=== PATIENT | female | born 1975 | race Caucasian/White ===

== ENCOUNTER 2016-10-20 19:38 | Emergency (ER) | payer OTHER ==
[2016-10-20 19:38] VITALS: BMI 26.9
[2016-10-20 19:42] VITALS: BP 149/78; PULSE 89; RESP 16; TEMP 100.3; O2SAT 100
[2016-10-20] MEDS ORDERED: Sodium Chloride 0.9% 1,000 ML IV STA (19:54)
--- NOTE | 2016-10-20 19:56 | ED PDOC ---
HPI: Abdomen Time Seen by Provider: 10/20/16 19:44 Chief Complaint (Nursing): Abdominal Pain Chief Complaint (Provider): Abdominal Pain History Per: Patient History/Exam Limitations: no limitations Onset/Duration Of Symptoms: Hrs (x2) Outside of [place] travel?: No Current Symptoms Are (Timing): Still Present Severity: Moderate Location Of Pain/Discomfort: Epigastric Associated Symptoms: Nausea, Vomiting (non-bloody, multiple episodes). denies: Fever, Diarrhea Additional Complaint(s): Taylor Carrillo is a 41 year old female, with a past medical history inclusive of gastritis and diabetes, who presents to the ED on 10/20/16 for the evaluation of moderate, epigastric abdominal pain that she has experienced x2 hours. Associated nausea and multiple episodes of non-bloody vomiting also reported, though she denies fever or diarrhea. PMD: Mario Sultana Past Medical History Reviewed: Historical Data, Nursing Documentation, Vital Signs Vital Signs: Last Vital Signs Temp 100.3 F H 10/20/16 19:39 Pulse 89 10/20/16 19:39 Resp 16 10/20/16 19:39 BP 149/78 10/20/16 19:39 Pulse Ox 100 10/20/16 20:01 - Medical History PMH: Anxiety, Diabetes, Gastritis, Kidney Stones, Chronic Kidney Disease Denies: CAD - Surgical History Surgical History: (x2) - Family History Family History: States: Hypertension - Home Medications Home Medications: Ambulatory Orders Medication Instructions Recorded Atenolol [Atenolol] 1 tab PO DAILY 07/12/15 Clonazepam [Clonazepam] 1 tab PO DAILY 07/12/15 metFORMIN [glucOPHAGE] 1 tab PO BID 07/12/15 Acetaminophen/Hydrocodone Bi 1 tab PO QID PRN #10 tab 07/13/15 [Hydrocodone-Acetaminophen 300 mg-5 mg] Cephalexin [cephalexin] 500 mg PO BID 10 Days 03/02/16 Ibuprofen [Motrin] 600 mg PO Q6 #20 tab 03/02/16 Phenazopyridine HCl [Pyridium] 100 mg PO TID #6 tab 03/02/16 Acetaminophen with Codeine 1 tab PO Q6 PRN #10 tab 06/03/16 [Tylenol with Codeine No. 3 300 mg-30 mg] Ondansetron [Zofran] 4 mg PO Q8H PRN #10 tab 06/03/16 Dicyclomine [Dicyclomine HCl] 10 mg PO Q8 #10 cap 10/20/16 Ondansetron [Zofran] 4 mg PO Q8H #10 tab 10/20/16 - Allergies Allergies/Adverse Reactions: Allergies Allergy/AdvReac Type Severity Reaction Status Date / Time No Known Allergies Allergy Verified 10/20/16 19:39 Review of Systems ROS Statement: Except As Marked, All Systems Reviewed And Found Negative Constitutional: Negative for: Fever Gastrointestinal: Positive for: Nausea, Vomiting (multiple episodes, non-bloody) , Abdominal Pain (epigastric). Negative for: Diarrhea Physical Exam - Reviewed Nursing Documentation Reviewed: Yes Vital Signs Reviewed: Yes - Physical Exam Appears: Positive for: Non-toxic, No Acute Distress Head Exam: Positive for: ATRAUMATIC, NORMOCEPHALIC Skin: Positive for: Normal Color, Warm, Dry Eye Exam: Positive for: Normal appearance, PERRL Cardiovascular/Chest: Positive for: Regular Rate, Rhythm. Negative for: Murmur Respiratory: Positive for: Normal Breath Sounds. Negative for: Respiratory Distress Gastrointestinal/Abdominal: Positive for: Soft, Tenderness (epigastric). Negative for: Guarding, Rebound Back: Positive for: Normal Inspection Neurologic/Psych: Positive for: Alert, Oriented - Laboratory Results Result Diagrams: 10/20/16 20:15 10/20/16 20:15 - ECG O2 Sat by Pulse Oximetry: 100 (RA) Pulse Ox Interpretation: Normal Medical Decision Making Medical Decision Makin:44 Initial Impression: epigastric abdominal pain/nauseas/vomiting in setting of known gastritis Initial Plan: * Labs * Upreg * Udip * IV NS 1000ml at 100mls/hr * Pepcid 20mg IVP * Zofran 4mg IVP * Bentyl 10mg PO * Reevaluation Scribe Attestation: Documented by Tracy Adkins, acting as a scribe for Bar Boone MD. Provider Scribe Attestation: All medical record entries made by the Scribe were at my direction and personally dictated by me. I have reviewed the chart and agree that the record accurately reflects my personal performance of the history, physical exam, medical decision making, and the department course for this patient. I have also personally directed, reviewed, and agree with the discharge instructions and disposition. Disposition - Clinical Impression Clinical Impression: Gastritis - Patient ED Disposition Is Patient to be Admitted: No Counseled Patient/Family Regarding: Studies Performed, Diagnosis, Need For Followup, Rx Given - Disposition Referrals: [facility] [Outside] Disposition: Routine/Home Disposition Time: 22:14 Condition: FAIR Prescriptions: Dicyclomine [Dicyclomine HCl] 10 mg PO Q8 #10 cap Ondansetron [Zofran] 4 mg PO Q8H #10 tab Instructions: Gastritis (ED) Print Language: PERUVIAN
[2016-10-20 20:25] LABS: BASO # 0.1 K/uL (0.0-0.2); BASO % 0.9 % (0.0-2.0); EOS # 0.1 K/uL (0.0-0.7); EOS % 0.9 % (0.0-4.0); HEMATOCRIT 30.9 % (34.0-47.0); LYMPH # 1.9 K/uL (1.0-4.3); LYMPH % 15.7 % (20.0-40.0); MEAN CELL VOLUME 76.8 fl (81.0-99.0); MEAN CORPUSCULAR HEMOGLOBIN 24.2 pg (27.0-31.0); MEAN CORPUSCULAR HGB CONC 31.5 g/dL (33.0-37.0); MEAN PLATELET VOLUME 9.4 fl (7.2-11.7); MONO # 0.7 K/uL (0.0-0.8); MONO % 5.7 % (0.0-10.0); NEUT # 9.5 K/uL (1.8-7.0); NEUT % 76.8 % (50.0-75.0); RED CELL DISTRIBUTION WIDTH 15.5 % (11.5-14.5)
[2016-10-20 20:39] LABS: ALKALINE PHOSPHATASE 83 U/L (38-126); ALT/SGPT 31 U/L (9-52); AST/SGOT 53 U/L (14-36); BILIRUBIN,TOTAL 0.6 mg/dl (0.2-1.3); BLOOD UREA NITROGEN 13 mg/dl (7-17); CALCIUM 8.9 mg/dL (8.4-10.2); CARBON DIOXIDE 23 mmol/L (22-30); CHLORIDE 106 mmol/L (98-107); GFR AFRICAN-AMERICAN > 60; GLUCOSE,RANDOM 112 mg/dL (65-105); SODIUM 144 mmol/l (132-148); TOTAL PROTEIN 8.1 G/DL (6.3-8.2)
[2016-10-20 20:53] LABS: WHITE BLOOD COUNT 12.4 K/uL (4.8-10.8)
== END 2016-10-20 22:34 | disposition home or self-care (01) ==
LOC: H.ER 19:38
DX: K29.70 Gastritis, unspecified, without bleeding (principal); R10.13 Epigastric pain; R11.2 Nausea with vomiting, unspecified; E11.22 Type 2 diabetes mellitus with diabetic chronic kidney disease; Z79.84 Long term (current) use of oral hypoglycemic drugs; N18.9 Chronic kidney disease, unspecified

== ENCOUNTER 2017-03-22 23:07 | Emergency (ER) | payer MEDICAID, OTHER ==
[2017-03-22 23:08] VITALS: BMI 26.9
[2017-03-22 23:11] VITALS: BP 136/84; PULSE 94; RESP 20; TEMP 98.2; O2SAT 99
[2017-03-22] MEDS ORDERED: Sodium Chloride 0.9% 1,000 ML IV STA (23:41)
[2017-03-23 00:07] LABS: BASO # 0.1 K/uL (0.0-0.2); BASO % 0.8 % (0.0-2.0); EOS # 0.2 K/uL (0.0-0.7); HEMATOCRIT 33.2 % (34.0-47.0); LYMPH # 1.4 K/uL (1.0-4.3); LYMPH % 15.7 % (20.0-40.0); MEAN CELL VOLUME 81.5 fl (81.0-99.0); MEAN CORPUSCULAR HEMOGLOBIN 26.2 pg (27.0-31.0); MEAN CORPUSCULAR HGB CONC 32.1 g/dL (33.0-37.0); MEAN PLATELET VOLUME 9.3 fl (7.2-11.7); MONO # 0.9 K/uL (0.0-0.8); MONO % 10.2 % (0.0-10.0); NEUT # 6.2 K/uL (1.8-7.0); NEUT % 71.3 % (50.0-75.0); RED CELL DISTRIBUTION WIDTH 16.7 % (11.5-14.5); WHITE BLOOD COUNT 8.7 K/uL (4.8-10.8)
[2017-03-23 00:10] LABS: RBC URINE 3 /hpf (0-3); URINE BILIRUBIN NEGATIVE (NEGATIVE); URINE BLOOD NEGATIVE (NEGATIVE); URINE COLOR STRAW (YELLOW); URINE GLUCOSE (UA) NEG (Normal); URINE KETONE NEGATIVE (NEGATIVE); URINE LEUKOCYTE ESTERASE NEG Leu/uL (Negative); URINE PROTEIN NEGATIVE (NEGATIVE); URINE UROBILINOGEN 0.2-1.0 mg/dL (0.2-1.0); WBC URINE 1 /hpf (0-5)
[2017-03-23 00:14] LABS: ALB/GLOB RATIO 1.2 (1.0-2.1); ALKALINE PHOSPHATASE 69 U/L (38-126); ALT/SGPT 117 U/L (9-52); AST/SGOT 77 U/L (14-36); BILIRUBIN,TOTAL 0.6 mg/dl (0.2-1.3); BLOOD UREA NITROGEN 11 mg/dl (7-17); CALCIUM 9.1 mg/dL (8.4-10.2); CARBON DIOXIDE 23 mmol/L (22-30); CHLORIDE 107 mmol/L (98-107); GFR AFRICAN-AMERICAN > 60; GLUCOSE,RANDOM 103 mg/dL (65-105); POTASSIUM 4.4 MMOL/L (3.6-5.0); SODIUM 140 mmol/l (132-148); TOTAL PROTEIN 7.3 G/DL (6.3-8.2)
--- NOTE | 2017-03-23 01:23 | ED PDOC ---
"HPI: Abdomen Time Seen by Provider: 03/22/17 23:40 Chief Complaint (Nursing): Abdominal Pain Chief Complaint (Provider): abdominal pain History Per: Patient History/Exam Limitations: no limitations Additional Complaint(s): 41yo F in ED with hx of renal stones for eval of acute back pain (left side) radiating to left lower pelvic x 3-4days worsened today with associated nausea without vomiting and chills. denies dysuria hematuira diarrhea. Past Medical History Reviewed: Historical Data, Nursing Documentation, Vital Signs Vital Signs: Last Vital Signs Temp 98.2 F 03/22/17 23:09 Pulse 94 H 03/22/17 23:09 Resp 20 03/22/17 23:09 BP 136/84 03/22/17 23:09 Pulse Ox 99 03/23/17 01:26 - Medical History PMH: Anxiety, Diabetes, Gastritis, Kidney Stones, Chronic Kidney Disease Denies: CAD - Surgical History Surgical History: (x2) - Family History Family History: States: Hypertension - Home Medications Home Medications: Ambulatory Orders Medication Instructions Recorded Atenolol [Atenolol] 1 tab PO DAILY 07/12/15 Clonazepam [Clonazepam] 1 tab PO DAILY 07/12/15 metFORMIN [glucOPHAGE] 1 tab PO BID 07/12/15 Acetaminophen/Hydrocodone Bi 1 tab PO QID PRN #10 tab 07/13/15 [Hydrocodone-Acetaminophen 300 mg-5 mg] Cephalexin [cephalexin] 500 mg PO BID 10 Days 03/02/16 Ibuprofen [Motrin] 600 mg PO Q6 #20 tab 03/02/16 Phenazopyridine HCl [Pyridium] 100 mg PO TID #6 tab 03/02/16 Acetaminophen with Codeine 1 tab PO Q6 PRN #10 tab 06/03/16 [Tylenol with Codeine No. 3 300 mg-30 mg] Ondansetron [Zofran] 4 mg PO Q8H PRN #10 tab 06/03/16 Dicyclomine [Dicyclomine HCl] 10 mg PO Q8 #10 cap 10/20/16 Ondansetron [Zofran] 4 mg PO Q8H #10 tab 10/20/16 Nitrofurantoin Macrocrystals 100 mg PO BID #14 cap 03/23/17 [Macrobid] Tamsulosin HCl [Flomax] 0.4 mg PO DAILY #12 cap.er.24h 03/23/17 - Allergies Allergies/Adverse Reactions: Allergies Allergy/AdvReac Type Severity Reaction Status Date / Time No Known Allergies Allergy Verified 10/20/16 19:39 Review of Systems ROS Statement: Except As Marked, All Systems Reviewed And Found Negative Constitutional: Positive for: Chills. Negative for: Fever, Sweats Gastrointestinal: Positive for: Nausea, Abdominal Pain. Negative for: Vomiting Physical Exam - Reviewed Nursing Documentation Reviewed: Yes Vital Signs Reviewed: Yes - Physical Exam Appears: Positive for: Non-toxic, No Acute Distress, Uncomfortable Skin: Positive for: Normal Color, Warm, DRY Cardiovascular/Chest: Positive for: Regular Rate, Rhythm Respiratory: Positive for: CNT, Normal Breath Sounds Gastrointestinal/Abdominal: Positive for: Normal Exam, Bowel Sounds, Soft, Tenderness (mild suprapubic) Back: Positive for: L CVA Tenderness. Negative for: R CVA Tenderness Neurologic/Psych: Positive for: Alert, Oriented - Laboratory Results Result Diagrams: 03/23/17 00:02 03/23/17 00:02 - ECG O2 Sat by Pulse Oximetry: 99 - Progress ED Course And Treament: pt will ge CT of abd/pelvis to r/o stone, labs and UA and torodol Medical Decision Making Medical Decision Making: Ct scan: ABDOMEN: Liver: Unremarkable. Gallbladder and bile ducts: No calcified stones. No ductal dilation. Pancreas: Unremarkable. No ductal dilation. Spleen: No splenomegaly. Adrenals: No mass. Kidneys and ureters: Mild stranding about kidneys, new in interval. No renal calculi. Moderate pelvocaliectasis of LEFT kidney, similar to previous examination. Moderately dilated LEFT ureter, similar to previous examination. Stomach and bowel: Scattered diverticula within colon. No associated inflammatory stranding. No definite mural thickening. No obstruction. Appendix: Normal caliber. No inflammation. PELVIS: Bladder: Unremarkable. No stones. Reproductive: Unremarkable as visualized. ABDOMEN and PELVIS: Intraperitoneal space: Trace free fluid within pelvis. No free air. Bones/joints: No acute fracture. TELMA AMAYA | Final Radiology Report CONFIDENTIALITY STATEMENT This report is intended only for use by the referring physician, and only in accordance with law. If you received this in error, call [phone]. Page 2 of 2 Soft tissues: Unremarkable. Vasculature: Unremarkable. No aneurysm. Lymph nodes: No pathologically enlarged lymph nodes. IMPRESSION: 1. Mild perinephric stranding, nonspecific. Clinical correlation is needed. 2. LEFT hydroureteronephrosis, grossly stable. 3. Incidental/non-acute findings are described above. Thank you for allowing us to participate in the care of your patient. Dictated and Authenticated by: Yaya Mercado MD 03/23/2017 1:46 AM Eastern Time ([place] & [place]) Pt will be given macorbid, flomax and advised to f.u with urologist. stable VS and well appearing. Disposition - Clinical Impression Clinical Impression: Hydronephrosis of left kidney, Pyelonephritis - Patient ED Disposition Is Patient to be Admitted: No Counseled Patient/Family Regarding: Need For Followup, Rx Given - Disposition Referrals: Amos Pradhan Jr., MD [Staff Provider] - Disposition: Routine/Home Disposition Time: 01:54 Condition: STABLE Prescriptions: Nitrofurantoin Macrocrystals [Macrobid] 100 mg PO BID #14 cap Tamsulosin HCl [Flomax] 0.4 mg PO DAILY #12 cap.er.24h Instructions: Urinary Tract Infection in Women (ED), Acute Pyelonephritis (DC) Forms: [employer] (Uzbek), [facility] ED School/Work Excuse Print Language: HEBREW"
--- NOTE | 2017-03-23 01:46 | CT ---
EXAM: CT Abdomen and Pelvis Without Intravenous Contrast CLINICAL HISTORY: 41 years old, female; Pain; Abdominal pain; Generalized; Additional info: Abdominal pain flank pain TECHNIQUE: Axial computed tomography images of the abdomen and pelvis without intravenous contrast. All CT scans at this facility use one or more dose reduction techniques, viz.: automated exposure control; ma/kV adjustment per patient size (including targeted exams where dose is matched to indication; i.e. head); or iterative reconstruction technique. Coronal and sagittal reformatted images were created and reviewed. COMPARISON: CT - ABD PELVIS W/O PO OR IV CONT 07/12/2015 10:30:30 PM FINDINGS: Lower thorax: LEFT lower lobe calcified granuloma. Small hiatal hernia. ABDOMEN: Liver: Unremarkable. Gallbladder and bile ducts: No calcified stones. No ductal dilation. Pancreas: Unremarkable. No ductal dilation. Spleen: No splenomegaly. Adrenals: No mass. Kidneys and ureters: Mild stranding about kidneys, new in interval. No renal calculi. Moderate pelvocaliectasis of LEFT kidney, similar to previous examination. Moderately dilated LEFT ureter, similar to previous examination. Stomach and bowel: Scattered diverticula within colon. No associated inflammatory stranding. No definite mural thickening. No obstruction. Appendix: Normal caliber. No inflammation. PELVIS: Bladder: Unremarkable. No stones. Reproductive: Unremarkable as visualized. ABDOMEN and PELVIS: Intraperitoneal space: Trace free fluid within pelvis. No free air. Bones/joints: No acute fracture. Soft tissues: Unremarkable. Vasculature: Unremarkable. No aneurysm. Lymph nodes: No pathologically enlarged lymph nodes. IMPRESSION: 1. Mild perinephric stranding, nonspecific. Clinical correlation is needed. 2. LEFT hydroureteronephrosis, grossly stable. 3. Incidental/non-acute findings are described above.
[2017-03-23] MEDS ORDERED: Acetaminophen-Codeine 300/30 mg Tab PO STA (02:09)
== END 2017-03-23 02:20 | disposition home or self-care (01) ==
LOC: H.ER 23:07
DX: N13.2 Hydronephrosis with renal and ureteral calculous obstruction (principal); N13.6 Pyonephrosis; E11.22 Type 2 diabetes mellitus with diabetic chronic kidney disease; F41.9 Anxiety disorder, unspecified; Z79.84 Long term (current) use of oral hypoglycemic drugs
CPT/HCPCS: 74176; 80053; 81003; 81025; 85025; 96374; 96375; 99283; J1885; J2405; J7040

== ENCOUNTER 2017-07-08 10:21 | Emergency (ER) | payer OTHER ==
[2017-07-08 10:21] VITALS: BMI 26.9
[2017-07-08 10:41] VITALS: RESP 18; TEMP 97
[2017-07-08] MEDS ORDERED: Sodium Chloride 0.9% 1,000 ML IV STA (11:30)
--- NOTE | 2017-07-08 11:36 | ED PDOC ---
HPI: General Adult Time Seen by Provider: 07/08/17 10:32 Chief Complaint (Nursing): Female Genitourinary History Per: Patient Additional Complaint(s): Pt. states since 030 today she's developed L sided lower back pain radiating to her LLQ. Pain is associated with 3 episodes of vomiting (all non-bloody) and watery diarrhea. Pt. describes pain as crampy. Pt. believes that this may be another kidney stones as pt. has a hx of frequent kidney stones without previous surgeries. Denies fever, hematuria, dysuria, incontinence, trauma, hematemesis, melena, hematochezia, BRBPR. Past Medical History Reviewed: Historical Data, Nursing Documentation, Vital Signs Vital Signs: Last Vital Signs Temp 97.0 F L 07/08/17 10:35 Pulse 84 07/08/17 17:00 Resp 18 07/08/17 17:00 BP 138/84 07/08/17 17:00 Pulse Ox 100 07/08/17 17:00 - Medical History PMH: Anxiety, Gastritis, Kidney Stones, Chronic Kidney Disease Denies: CAD - Surgical History Surgical History: (x2) - Family History Family History: States: No Known Family Hx, Hypertension - Home Medications Home Medications: Ambulatory Orders Medication Instructions Recorded Atenolol [Tenormin] 25 mg PO DAILY 07/08/17 Naproxen [Naprosyn] 500 mg PO BID PRN #30 tab 07/08/17 Omeprazole [Omeprazole] 40 mg PO DAILY PRN 07/08/17 Ondansetron ODT [Zofran ODT] 4 mg PO TID #21 odt 07/08/17 clonazePAM [Klonopin] 0.5 mg PO BID PRN 07/08/17 - Allergies Allergies/Adverse Reactions: Allergies Allergy/AdvReac Type Severity Reaction Status Date / Time No Known Allergies Allergy Verified 07/08/17 10:34 Review of Systems ROS Statement: Except As Marked, All Systems Reviewed And Found Negative Gastrointestinal: Positive for: Nausea, Vomiting, Abdominal Pain, Diarrhea Genitourinary Female: Positive for: Pelvic Pain Musculoskeletal: Positive for: Back Pain Physical Exam - Reviewed Nursing Documentation Reviewed: Yes Vital Signs Reviewed: Yes - Physical Exam Appears: Positive for: Well, Non-toxic, No Acute Distress Head Exam: Positive for: ATRAUMATIC, NORMAL INSPECTION, NORMOCEPHALIC Skin: Positive for: Normal Color, Warm. Negative for: Rash Eye Exam: Positive for: Normal appearance Neck: Positive for: Normal, Painless ROM Cardiovascular/Chest: Positive for: Regular Rate, Rhythm Respiratory: Positive for: CNT, Normal Breath Sounds Gastrointestinal/Abdominal: Positive for: Normal Exam, Soft, Tenderness (L sided pelvic tenderness) Back: Positive for: Normal Inspection. Negative for: L CVA Tenderness, R CVA Tenderness Extremity: Positive for: Normal ROM Neurologic/Psych: Positive for: Alert, Oriented. Negative for: Aphasia, Facial Droop - Laboratory Results Result Diagrams: 07/08/17 12:06 07/08/17 12:06 - ECG O2 Sat by Pulse Oximetry: 99 - Progress ED Course And Treament: Labs ordered. Toradol 30mg IV, zofran 4mg IV, IV NS bolus x 1 ordered. Pt. has had 5 CT abd/pelvis done within the past 2 years. Will obtain US first. Renal US: L mild hydronephrosis Pelvic US: unremarkable. Pt. informed of results and plan to f/u with urologist via wildlife removal specialist [id number]. Pt. agrees with plan and states she feels much better. Disposition - Clinical Impression Clinical Impression: Renal colic - Patient ED Disposition Is Patient to be Admitted: No - Disposition Disposition: Routine/Home Disposition Time: 15:30 Condition: IMPROVED Prescriptions: Naproxen [Naprosyn] 500 mg PO BID PRN #30 tab PRN Reason: Pain Ondansetron ODT [Zofran ODT] 4 mg PO TID #21 odt Instructions: Renal Colic (ED) Forms: [employer] (Mongolian) Print Language: TELUGU
[2017-07-08 12:10] LABS: BASO # 0.1 K/uL (0.0-0.2); BASO % 1.2 % (0.0-2.0); EOS # 0.1 K/uL (0.0-0.7); EOS % 0.6 % (0.0-4.0); HEMOGLOBIN 12.3 g/dL (12.0-16.0); LYMPH # 1.6 K/uL (1.0-4.3); LYMPH % 18.9 % (20.0-40.0); MEAN CELL VOLUME 86.1 fl (81.0-99.0); MEAN CORPUSCULAR HGB CONC 33.7 g/dL (33.0-37.0); MEAN PLATELET VOLUME 9.3 fl (7.2-11.7); MONO # 0.5 K/uL (0.0-0.8); MONO % 5.2 % (0.0-10.0); NEUT # 6.4 K/uL (1.8-7.0); NEUT % 74.1 % (50.0-75.0); NRBC % 0.1 % (0.0-0.0); RBC 4.24 Mil/uL (3.80-5.20); RED CELL DISTRIBUTION WIDTH 13.1 % (11.5-14.5); WHITE BLOOD COUNT 8.6 K/uL (4.8-10.8)
[2017-07-08 12:21] LABS: ALB/GLOB RATIO 1.2 (1.0-2.1); ALBUMIN 4.3 g/dL (3.5-5.0); ALT/SGPT 66 U/L (9-52); AST/SGOT 34 U/L (14-36); BLOOD UREA NITROGEN 10 mg/dl (7-17); CALCIUM 9.2 mg/dL (8.4-10.2); GFR AFRICAN-AMERICAN > 60; GFR NON-AFRICAN AMERICAN > 60
[2017-07-08 12:37] LABS: SQUAMOUS EPITHIAL 2 /hpf (0-5); URINE BACTERIA RARE (<OCC); URINE BILIRUBIN NEGATIVE (NEGATIVE); URINE BLOOD MODERATE (NEGATIVE); URINE CLARITY SLIGHTY-CLOUDY (Clear); URINE COLOR YELLOW (YELLOW); URINE GLUCOSE (UA) NEG (Normal); URINE LEUKOCYTE ESTERASE NEG Leu/uL (Negative); URINE NITRATE NEGATIVE (NEGATIVE); URINE PROTEIN NEGATIVE (NEGATIVE); URINE UROBILINOGEN 0.2-1.0 mg/dL (0.2-1.0)
--- NOTE | 2017-07-08 13:27 | RAD ---
HISTORY: lower back pain, hx of kidney stones COMPARISON: 03/23/2017 CT abdomen and pelvis. FINDINGS: BOWEL: Normal. No obstruction. No free air. BONES: Normal. OTHER FINDINGS: None. IMPRESSION: No significant or acute findings to account for/ related to the clinical presentation. Yes go
--- NOTE | 2017-07-08 15:25 | US ---
PROCEDURE: Ultrasound of the Kidneys HISTORY: L sided lower back pain; hx of L kidney stones COMPARISON: None available. TECHNIQUE: Sonogram of the kidneys. FINDINGS: RIGHT KIDNEY: Measures: 10.7 cm. Normal in size, contour and echogenicity. No calculus or mass. Minimal fullness of the collecting system without beba hydronephrosis. LEFT KIDNEY: Measures: 10.9 cm. Normal in size, contour and echogenicity. No mass or calculus. Mild hydronephrosis. OTHER FINDINGS: None. IMPRESSION: Mild left hydronephrosis. No renal calculus.
--- NOTE | 2017-07-08 15:31 | US ---
HISTORY: Left-sided pelvic and lower back pain. Menstrual status: LMP 07/03/2017 COMPARISON: None available. TECHNIQUE: Transabdominal, transvaginal. Real -time technique with 2D, duplex and color Doppler. FINDINGS: UTERUS: Measures 4.5 x 5.9 x 11.2 cm. Normal in size and appearance. No fibroid or other mass lesion seen. ENDOMETRIUM: Measures 4.2 mm in diameter. No ultrasound findings to suggest gestational sac, fluid, debris, mass or polyp or other pathologic process within the endometrium. CERVIX: No cervical abnormality identified. RIGHT OVARY: Measures 1.3 x 1.7 x 2.9 cm. No solid mass. Normal flow. LEFT OVARY: Measures 1.4 x 2 x 2.8 cm. No solid mass. Normal flow. FREE FLUID: No significant free fluid noted. OTHER FINDINGS: None. IMPRESSION: Unremarkable pelvic ultrasound.
[2017-07-08 17:32] VITALS: BP 138/84; PULSE 84
[2017-07-08 18:56] VITALS: O2SAT 99
== END 2017-07-08 17:00 | disposition home or self-care (01) ==
LOC: H.ER 10:21
DX: N20.0 Calculus of kidney (principal); F41.9 Anxiety disorder, unspecified
CPT/HCPCS: 74000; 76770; 76830; 76856; 80053; 81003; 81025; 85025; 87086; 96361; 96374; 96375; 99283; J1885; J2405; J7040

== ENCOUNTER 2017-11-30 01:09 | Emergency (ER) | payer MEDICAID, OTHER ==
[2017-11-30 01:10] VITALS: BMI 26.9
[2017-11-30 01:42] VITALS: TEMP 98.2
[2017-11-30] MEDS ORDERED: Sodium Chloride 0.9% 1,000 ML IV STA (02:03)
--- NOTE | 2017-11-30 02:07 | ED PDOC ---
HPI: Abdomen Time Seen by Provider: 11/30/17 01:46 Chief Complaint (Nursing): Abdominal Pain Chief Complaint (Provider): abdominal pain History Per: Patient History/Exam Limitations: no limitations Onset/Duration Of Symptoms: Days (1) Current Symptoms Are (Timing): Still Present Location Of Pain/Discomfort: Epigastric Quality Of Discomfort: Burning, "Pain" Associated Symptoms: Nausea, Vomiting Last Bowel Movement: Today Additional Complaint(s): 42 y/o female history of gastritis presents with upper abdominal pain x 1 day. Associated vomiting x 3, and 4 loose nonbloody bowel movements. Denies fever, chest pain, shortness of breath, palpitations, urinary symptoms, recent travel, sick contacts. Past Medical History Reviewed: Historical Data, Nursing Documentation, Vital Signs Vital Signs: Last Vital Signs Temp 98.2 F 11/30/17 01:39 Pulse 91 H 11/30/17 06:11 Resp 16 11/30/17 06:11 BP 136/77 11/30/17 06:11 Pulse Ox 98 11/30/17 06:11 - Medical History PMH: Anxiety, Diabetes, Gastritis, Kidney Stones, Chronic Kidney Disease Denies: CAD - Surgical History Surgical History: (x2) - Family History Family History: States: Hypertension - Home Medications Home Medications: Ambulatory Orders Medication Instructions Recorded Atenolol [Tenormin] 25 mg PO DAILY 07/08/17 Naproxen [Naprosyn] 500 mg PO BID PRN #30 tab 07/08/17 Omeprazole [Omeprazole] 40 mg PO DAILY PRN 07/08/17 Ondansetron ODT [Zofran ODT] 4 mg PO TID #21 odt 07/08/17 clonazePAM [Klonopin] 0.5 mg PO BID PRN 07/08/17 Dicyclomine [Bentyl] 20 mg PO TID PRN #15 tab 11/30/17 Ondansetron ODT [Zofran ODT] 4 mg PO Q8 PRN #10 odt 11/30/17 - Allergies Allergies/Adverse Reactions: Allergies Allergy/AdvReac Type Severity Reaction Status Date / Time No Known Allergies Allergy Verified 11/30/17 01:39 Review of Systems ROS Statement: Except As Marked, All Systems Reviewed And Found Negative Gastrointestinal: Positive for: Nausea, Vomiting, Abdominal Pain, Diarrhea Physical Exam - Reviewed Nursing Documentation Reviewed: Yes Vital Signs Reviewed: Yes - Physical Exam Appears: Positive for: Well, Non-toxic, Uncomfortable Head Exam: Positive for: ATRAUMATIC, NORMAL INSPECTION, NORMOCEPHALIC Skin: Positive for: Normal Color Eye Exam: Positive for: Normal appearance ENT: Positive for: Normal ENT Inspection Cardiovascular/Chest: Positive for: Regular Rate, Rhythm Respiratory: Positive for: Normal Breath Sounds Gastrointestinal/Abdominal: Positive for: Bowel Sounds, Soft, Tenderness ( epigastric) Back: Positive for: Normal Inspection Extremity: Positive for: Normal ROM Neurologic/Psych: Positive for: Alert, Oriented - Laboratory Results Result Diagrams: 11/30/17 02:19 11/30/17 02:19 - ECG O2 Sat by Pulse Oximetry: 99 - Progress ED Course And Treament: labs, IV fluids, ODT zofran, IV protonix On re-eval, patient vomitied; IV relgan, GI cocktail ordered 5:45 Patient sleeping; upon awaking states she is feeling better. Tolerating PO Patient educated on findings, discharged with rx zofran, bentyl. Advised to continue Omeprazole as prescribed, fluids, bland diet Follow up PMD 2-3 days. Return precautions given Disposition - Clinical Impression Clinical Impression: Gastritis, Gastroenteritis - Patient ED Disposition Is Patient to be Admitted: No Counseled Patient/Family Regarding: Studies Performed, Diagnosis, Need For Followup, Rx Given - Disposition Referrals: Mario Sultana MD [Primary Care Provider] - Disposition: Routine/Home Disposition Time: 06:00 Condition: IMPROVED Prescriptions: Dicyclomine [Bentyl] 20 mg PO TID PRN #15 tab PRN Reason: Pain, Mild (1-3) Ondansetron ODT [Zofran ODT] 4 mg PO Q8 PRN #10 odt PRN Reason: Nausea/Vomiting Instructions: Gastritis, Gastroenteritis (ED) Forms: [employer] (Gibraltarian) Print Language: YAKUT
[2017-11-30 02:55] LABS: BASO % 0.2 % (0.0-2.0); EOS # 0.1 K/uL (0.0-0.7); HEMOGLOBIN 12.8 g/dL (12.0-16.0); LYMPH % 17.9 % (20.0-40.0); MEAN CELL VOLUME 85.4 fl (81.0-99.0); MEAN CORPUSCULAR HEMOGLOBIN 28.8 pg (27.0-31.0); MEAN CORPUSCULAR HGB CONC 33.7 g/dL (33.0-37.0); MEAN PLATELET VOLUME 9.9 fl (7.2-11.7); MONO # 0.7 K/uL (0.0-0.8); MONO % 6.7 % (0.0-10.0); NEUT # 8.3 K/uL (1.8-7.0); NEUT % 74.2 % (50.0-75.0); RBC 4.46 Mil/uL (3.80-5.20); WHITE BLOOD COUNT 11.2 K/uL (4.8-10.8)
[2017-11-30 03:05] LABS: ALB/GLOB RATIO 1.1 (1.0-2.1); ALBUMIN 4.5 g/dL (3.5-5.0); ALT/SGPT 68 U/L (9-52); AST/SGOT 38 U/L (14-36); BLOOD UREA NITROGEN 13 mg/dl (7-17); CALCIUM 9.1 mg/dL (8.4-10.2); GFR AFRICAN-AMERICAN > 60; GFR NON-AFRICAN AMERICAN > 60; LIPASE 80 U/L (23-300)
[2017-11-30] MEDS ORDERED: Atrop/Hyos/Scop/PhenoB Elixir PO STA (03:20)
[2017-11-30] MEDS ORDERED: Alum-Mag Hydrox-Simethicone Susp (30 mL) PO STA (03:20)
[2017-11-30] MEDS ORDERED: Alum-Mag Hydrox-Simethicone Susp (30 mL) ONE (03:41)
[2017-11-30 06:12] VITALS: BP 136/77; PULSE 91; RESP 16
[2017-12-01 05:31] VITALS: O2SAT 99
== END 2017-11-30 06:18 | disposition home or self-care (01) ==
LOC: H.ER 01:09
DX: K29.70 Gastritis, unspecified, without bleeding (principal); K52.9 Noninfective gastroenteritis and colitis, unspecified; N18.9 Chronic kidney disease, unspecified; Z87.442 Personal history of urinary calculi
CPT/HCPCS: 80053; 81025; 83690; 85025; 96361; 96374; 96375; 99284; C9113; J2765; J7040